=== PATIENT | male | born 1985 | race Caucasian/White ===

== ENCOUNTER 2024-08-17 14:47 | Emergency (ER) | payer OTHER ==
[~2024-08-17] VITALS: Ht 172.7 cm; Wt 83.9 kg
[2024-08-17] MEDS: IV NS 0.9% 1,000 ML IV PRN (16:00)
[2024-08-17 16:02] LABS: BASOPHILS % (AUTO) 0.2 % (0.0-2.0); EOSINOPHILS % (AUTO) 0.1 % (0.0-6.0); HEMATOCRIT 45 % (39-51); LYMPHOCYTES # (AUTO) 0.9 K/uL (0.8-4.8); LYMPHOCYTES % (AUTO) 13.5 % (20.0-44.0); MEAN CORPUSCULAR HEMOGLOBIN 29 PG (26.0-33.0); MEAN CORPUSCULAR HGB CONC 33 g/dl (31.0-36.0); MEAN CORPUSCULAR VOLUME 87 fL (80-96); MONOCYTES # (AUTO) 0.3 K/uL (0.1-1.30); MONOCYTES % (AUTO) 4.4 % (2.0-12.0); NEUTROPHILS # (AUTO) 5.3 K/uL (1.8-8.9); NEUTROPHILS % (AUTO) 81.8 % (43.0-81.0); PLATELET COUNT (AUTO) 186 K/uL (150-450); RED BLOOD CELL COUNT(AUTO) 5.19 MIL/uL (4.5-6.0); RED CELL DISTRIBUTION WIDTH 13.2 % (11.5-15.0); WHITE BLOOD COUNT (AUTO) 6.5 K/uL (4.3-11.0)
[2024-08-17 16:23] LABS: CARBON DIOXIDE 23 mmol/L (21-32); CHLORIDE 97 mmol/L (98-107); POTASSIUM 5.4 mmol/L (3.5-5.1); SODIUM SERUM 130 mmol/L (136-145)
[2024-08-17 16:24] LABS: CALCIUM, SERUM 9.1 mg/dL (8.5-10.1); CREATININE 1.2 mg/dL (0.6-1.3); MAGNESIUM 1.9 mg/dL (1.8-2.4); UREA NITROGEN, BLOOD 16 mg/dL (7-18)
[2024-08-17 16:26] LABS: GLUCOSE 604 mg/dL (74-106)
[2024-08-17 16:30] LABS: SITE, VBG Other; VBG BASE EXCESS -2.4 mmol/L (-2.0-3.0); VBG COHb 0.1 % (0.5-1.5); VBG HCO3 22.4 mmol/L (22.0-29.0); VBG MetHb 0.3 % (0.5-1.5); VBG O2Hb 71.7 % (0-79); VBG PCO2 38.9 mmHg (38.0-54.0); VBG PH 7.378 (7.320-7.430); VBG PO2 38.4 mmHg (23.0-48.0); VBG TOTAL HEMOGLOBIN 15.2 G/dL (13.5-17.5)
[2024-08-17 16:45] LABS: ACETONE, SERUM SMALL (NEGATIVE)
[2024-08-17] MEDS: INSULIN ASPART/LISPRO 100 UNIT/ML CARTRIDGE SQ ONE (17:03)
[2024-08-17] MEDS ORDERED: INSULIN REGULAR, HUMAN 100 UNIT/ML 10 ML VIAL ONE (17:07)
[2024-08-17] MEDS: IV NS 0.9% 1,000 ML IV ONE ×2 (17:31→18:45)
[2024-08-17] MEDS ORDERED: INSU100I14 SQ (17:33)
[2024-08-17] MEDS ORDERED: INSU100V7 SQ (17:33)
[2024-08-17] MEDS: INSULIN REGULAR, HUMAN 100 UNIT/ML 10 ML VIAL SQ ONE (17:35)
[2024-08-17 18:00] VITALS: TEMP 98.3
[2024-08-17 18:56] LABS: POTASSIUM 4.3 mmol/L (3.5-5.1)
[2024-08-17 18:57] LABS: CALCIUM, SERUM 8.5 mg/dL (8.5-10.1)
[2024-08-17 20:07] LABS: APPEARANCE,URINE CLEAR (CLEAR); BILIRUBIN,URINE Negative (NEGATIVE); BLOOD, URINE Trace-intact Ery/uL (NEGATIVE); COLOR,URINE YELLOW (YELLOW); KETONES,URINE >=160 mg/dL (NEGATIVE); LEUKOCYTE ESTERASE ,URINE Negative (NEGATIVE); PH,URINE 5.5 (5.0-8.0); PROTEIN,URINE Negative (NEGATIVE); UGLUCOSE >=1000 mg/dL (NEGATIVE); UROBILINOGEN,URINE 0.2 EU/dL (0.2)
[2024-08-17 20:13] LABS: NITRITE, URINE NEGATIVE (NEGATIVE)
[2024-08-17 20:14] LABS: ADD URINE CULTURE NO; BACTERIA,URINE Few /HPF (None Seen); SQUAMOUS EPITHELIAL CELL,UR Few /HPF (None Seen); WBC,URINE 0-2 /HPF (0-3)
[2024-08-17] MEDS ORDERED: ACETAMINOPHEN 650 MG/20.3 ML UDC ONE (21:06)
[2024-08-17] MEDS ORDERED: LIDOCAINE 5% (PATCH) 1 EA PATCH TP ONE (21:06)
[2024-08-17] MEDS: LIDOCAINE 5% (PATCH) 1 EA PATCH TP SCH (21:09)
[2024-08-17] MEDS: ACETAMINOPHEN 650 MG/20.3 ML UDC PO ONE (21:09)
[2024-08-17 21:59] VITALS: BP 138/95; O2SAT 96
[2024-08-18] MEDS ORDERED: INSULIN ASPART/LISPRO 100 UNIT/ML CARTRIDGE SQ SCH (12:00)
[2024-08-18] MEDS ORDERED: INSULIN GLARGINE, 100 UNIT/ML CARTRIDGE SQ SCH (22:00)
== END 2024-08-18 06:14 | disposition short-term general hospital (02) ==
LOC: ER 14:55
DX: M25.512 Pain in left shoulder (principal); E10.65 Type 1 diabetes mellitus with hyperglycemia; R00.2 Palpitations; W01.0XXA Fall on same level from slipping, tripping and stumbling without subsequent striking against object, initial encounter; Y93.89 Activity, other specified; Y92.89 Other specified places as the place of occurrence of the external cause; Y99.8 Other external cause status
CPT/HCPCS: 99285; 96360; 96361; 71045; 96372; 93005 ×2; 82803; 73080; 73030; 85025; 80048 ×2; 82010; 83735; 84100; 81001; 36415; 82962 ×4; J1815; J7030 ×3